=== PATIENT | male | born 1990 | race Caucasian/White ===

== ENCOUNTER 2025-02-23 18:22 | Emergency (ER) | payer BC, SELFPAY ==
[2025-02-23 18:58] VITALS: BP 132/85; PULSE 74; TEMP 36.8; O2SAT 100; BMI 25.1
--- NOTE | 2025-02-23 19:12 | XR_ITS ---
[facility] [id number] Patient Name: MICA EID MRN: [id number] date: 1990 Sex: M Assigned Patient Location: ER Current Patient Location: ED.MAIN Accession/Order Number: [id number] Exam Date: 02/23/2025 19:15 Report Date: 02/23/2025 20:09 At the request of: QUANG AMOS MD Procedure: XR wrist RT min 3V 3 views right wrist CLINICAL HISTORY: fall from scaffold, right wrist pain COMPARISON: None FINDINGS: Nondisplaced fracture distal radius with intra-articular extension. Ulna is intact. Carpal bones intact. XR/XR wrist RT min 3V IMPRESSION: Nondisplaced distal radial fracture. Impression dictated by: Devyn Chawla M.D. 02/23/2025 8:09 PM Dictation Location: [place] [address] Electronically authenticated by: [id number] Y Date: 02/23/2025 20:09
--- NOTE | 2025-02-23 19:12 | ED.FALL1 ---
HPI HPI - Fall General Chief Complaint: Fall Stated Complaint: FALL Time Seen by Provider: 02/23/25 19:01 Source: patient Mode of arrival: walk-in Limitations: no limitations History of Present Illness HPI Narrative: This 34-year-old male who is right-hand dominant presents for evaluation of right wrist pain. The patient was on a 7 foot scaffold pounding and a piece of board when the board came loose and the patient lost his footing and fell landing on his right wrist. He denies striking his head. He has no neck or back pain. He initially thought he may be just sprained his wrist but has had ongoing pain for the past hour. He denies any numbness or tingling. He has no lower extremity pain or swelling. Related Data Home Medications ?Medication ?Instructions ?Recorded ?Confirmed No Known Home Medications 02/23/25 02/23/25 Allergies Allergy/AdvReac Type Severity Reaction Status Date / Time No Known Drug Allergies Allergy Verified 02/23/25 18:57 Opioid HPI Opioid Management Most Recent Pain and Opioid Data: Last Pain Scale 7 Today, 18:58 Review of Systems ROS Status of ROS 10 or more systems reviewed and unremarkable except as noted in history and below PFSH PFSH Social History Little interest or pleasure in doing things: not at all Feeling down, depressed, or hopeless: not at all Exam Narrative Exam Narrative: Vital signs and Nursing Notes reviewed: Patient is afebrile with a normal pulse, normal blood pressure, he is not hypoxic with pulse ox of 100% on room air General: Awake, alert, oriented, no acute distress, sitting upright on the stretcher, GCS 15 HEENT: Normocephalic atraumatic, mucous membranes are moist and pink, eyes are clear, normal conjunctiva, vision is grossly intact Chest: Lungs are clear to auscultation with good air entry, there is no wheezing rhonchi or rales appreciated no accessory muscle use, patient is speaking in complete sentences-no chest wall tenderness to palpation CVS: Regular rate and rhythm S1-S2, no murmurs rubs or gallops, pulses are brisk and equal bilaterally Extremities: Tenderness without notable bony deformity at the distal radius and ulna. Patient is able to move all of his fingers. There is no forearm, elbow, humerus or shoulder tenderness. Radial pulses brisk. Capillary refill in the right hand is normal. Skin: Normal in appearance without rash,pallor, petechiae or purpura Neuro: No focal deficits Constitutional Vital Signs, click to edit/add: Last Vital Signs Temp 98.3 F 02/23/25 18:58 Pulse 74 02/23/25 18:58 Resp 16 02/23/25 18:58 BP 132/85 02/23/25 18:58 Pulse Ox 100 02/23/25 18:58 O2 Del Method Room Air 02/23/25 18:58 Course Vital Signs Vital signs: Vital Signs Temperature 98.3 F 02/23/25 18:58 Pulse Rate 74 02/23/25 18:58 Respiratory Rate 16 02/23/25 18:58 Blood Pressure 132/85 02/23/25 18:58 Pulse Oximetry 100 02/23/25 18:58 Oxygen Delivery Method Room Air 02/23/25 18:58 Temperature 98.3 F 02/23/25 18:58 Pulse Rate 74 02/23/25 18:58 Respiratory Rate 16 02/23/25 18:58 Blood Pressure 132/85 02/23/25 18:58 Pulse Oximetry 100 02/23/25 18:58 Oxygen Delivery Method Room Air 02/23/25 18:58 MDM - Fall MDM Narrative Medical decision making narrative: This 34-year-old male who is right-hand dominant presents for evaluation of right wrist pain after falling off a scaffold from 7 feet in the air. He slipped on the scaffold fell. He fell onto his right arm. He has pain without notable bony deformity to the right wrist. X-ray shows a nondisplaced distal radius fracture. He was medicated emergency department with Tori and Nils. He was immobilized in a one-step splint and will be referred to outpatient radiology. He did not have any additional injury including hitting his head, neck or back pain. He has no lower extremity pain or injury. Imaging Data xr wrist: Radiologist's impression: ITS Impressions Wrist X-Ray 02/23/25 19:12 IMPRESSION: Nondisplaced distal radial fracture. Impression dictated by: Devyn Chawla M.D. 02/23/2025 8:09 PM Dictation Location: [place] [address] Electronically authenticated by: [id number] Y Date: 02/23/2025 20:09 Discharge Plan Discharge Chief Complaint: Fall Clinical Impression: Fracture of wrist Patient Disposition: Home, Self-Care Time of Disposition Decision: 19:54 Condition: Good Prescriptions / Home Meds: No Action No Known Home Medications Print Language: Swazi Instructions: Wrist Fracture in Adults (ED) Referrals: Jovany Pandya DO [Primary Care Provider] - 1 week Garrett Burnham MD [Physician, Orthopedics] - As soon as possible Procedures ED Procedure Instructions Procedures Procedures: Fracture care without manipulation; a one-step volar splint was applied to the right forearm to immobilize the distal radius over heavy packing, Bharathi wrap was applied. Patient tolerated procedure well and was neurovascularly intact.
[2025-02-23] MEDS: HYDROCODONE/ACET 5-325 MG TABLET 1 TAB PO (19:44)
[2025-02-23] MEDS: ONDANSETRON 4 MG RAPDIS TABLET SL (19:44)
[2025-02-23] MEDS: HYDROCODONE/ACET 5-325 MG TABLET 2 TAB PO (20:02)
== END 2025-02-23 19:45 | disposition home or self-care (01) ==
PROVIDERS: Emergency Provider Emergency Medicine; PCP Family Medicine
DX: S52.571A Other intraarticular fracture of lower end of right radius, initial encounter for closed fracture (principal); W17.89XA Other fall from one level to another, initial encounter; Y93.H3 Activity, building and construction
CPT/HCPCS: 29125; 73110; 99283; Q0162